=== PATIENT | female | born 1985 | race Two or more races ===

== ENCOUNTER 2020-08-28 12:58 | Emergency (ER) | payer OTHER, MEDICAID ==
[~2020-08-28] VITALS: Ht 162.6 cm; Wt 74.8 kg
[~2020-08-28 12:58] MED LIST: ACETAMINOPHEN-H1 TA1 PO; AUG500 PO; COL100 PO; DEPAKOTE500 MG; DULCOLAX5 M1; INVEGA SUSTENN117 MG; LEVEMIR100 U/M1; NOVOLOG100 U/ML; OMEPRAZOLE40 M1; RELION HUMUL100 U/M2; RISPERDAL1 M1; ZESTRIL5 MG
[2020-08-28 13:20] VITALS: BP 135/88; Ht 162.6 cm; Wt 74.8 kg
== END 2020-08-28 15:43 | disposition home or self-care (01) ==
LOC: ED 12:58
DX: R10.11 Right upper quadrant pain (principal); I10 Essential (primary) hypertension; E11.9 Type 2 diabetes mellitus without complications; Z90.49 Acquired absence of other specified parts of digestive tract; Z87.19 Personal history of other diseases of the digestive system; Z91.012 Allergy to eggs

== ENCOUNTER 2020-10-08 20:01 | Inpatient (IN) | payer OTHER, MEDICAID ==
[~2020-10-08] VITALS: Ht 167.6 cm; Wt 74.8 kg
[2020-10-08 20:12] VITALS: Ht 167.6 cm; Wt 74.8 kg
[2020-10-08 21:06] LABS: PLATELET COUNT 446 x10^3mcL (179-408); RED CELL DISTRIBUTION WIDTH 17.6 % (12.3-17.7)
[2020-10-08 21:12] LABS: ALBUMIN 3.5 g/dL (3.4-5.0); ALKALINE PHOSPHATASE 191 U/L (46-116); ALT/SGPT 113 U/L (14-59); AST/SGOT 97 U/L (15-37); BILIRUBIN TOTAL 1.8 mg/dL (0.20-1.00); CALCIUM 9.3 mg/dL (8.5-10.1); CARBON DIOXIDE 23.6 mmol/L (21-32); CHLORIDE SERUM 99 mmol/L (98-107); CREATININE SERUM 1.1 mg/dL (0.6-1.0); GFR1 > 60 mL/min; GLUCOSE SERUM 292 mg/dL (74-106); LIPASE 134 IU/L (73-393); POTASSIUM SERUM 4.3 mmol/L (3.5-5.1); SODIUM SERUM 135 mmol/L (136-145); TOTAL PROTEIN, SERUM 8.2 g/dL (6.4-8.2)
[2020-10-08 21:37] LABS: BAND NEUTROPHIL 25 % (0-10); BASOPHIL 0 % (0-2); MONOCYTE 8 % (0-7); SEGMENTED NEUTROPHILS 65 % (37-75)
[2020-10-08 21:39] LABS: rbc morphology (normal/abnorm) ABNORMAL (NORMAL); target cell (codocyte) 1+
[2020-10-08 21:40] LABS: PLATELET MORPHOLOGY PLATELETS INCREASED
[2020-10-09 02:44] LABS: microscopic required? NO
[2020-10-09 03:00] LABS: urine erythrocyte NEGATIVE (NEGATIVE)
[2020-10-09 03:08] LABS: AMPHETAMINE QUAL UR NONE DETECTED (See below)
[2020-10-09 06:00] LABS: MAGNESIUM 1.3 mg/dL (1.8-2.4); PHOSPHOROUS 1.2 mg/dL (2.5-4.9); T3 TOTAL 0.49 ng/mL
[2020-10-09 06:08] LABS: CHOLESTEROL/HDL RATIO 1.8
[2020-10-09 06:53] LABS: FREE T4 0.9 ng/dL (0.76-1.46); FREE THYROXINE INDEX 2.2 ug/dL (1.4-4.5); T4(THYROXINE) 6.2 ug/dL (4.7-13.3)
[2020-10-09 08:53] LABS: BASOPHIL % 0.2 % (0.2-1.3); PLATELET COUNT 257 x10^3mcL (179-408)
[2020-10-09 08:53] LABS: BILIRUBIN TOTAL 3.26 mg/dL (0.20-1.00); CALCIUM 7.7 mg/dL (8.5-10.1); CARBON DIOXIDE 14.3 mmol/L (21-32); CREATININE SERUM 1.7 mg/dL (0.6-1.0); TOTAL PROTEIN, SERUM 6.8 g/dL (6.4-8.2)
[2020-10-09 09:34] LABS: RED CELL DISTRIBUTION WIDTH 17.4 % (12.3-17.7)
[2020-10-09 09:47] LABS: rbc morphology (normal/abnorm) NORMAL (NORMAL)
[2020-10-09 10:01] LABS: ALBUMIN 2.6 g/dL (3.4-5.0)
[2020-10-09 17:04] LABS: C REACTIVE PROTEIN 12.8 mg/dL (<=0.9)
[2020-10-10 05:20] LABS: BASOPHIL % 0.3 % (0.2-1.3); PLATELET COUNT 181 x10^3mcL (179-408)
[2020-10-10 05:24] LABS: RED CELL DISTRIBUTION WIDTH 17.6 % (12.3-17.7)
[2020-10-10 05:29] LABS: rbc morphology (normal/abnorm) NORMAL (NORMAL)
[2020-10-10 05:31] LABS: ALKALINE PHOSPHATASE 149 U/L (46-116); ALT/SGPT 92 U/L (14-59); AST/SGOT 60 U/L (15-37); BILIRUBIN TOTAL 3.33 mg/dL (0.20-1.00); CARBON DIOXIDE 17.2 mmol/L (21-32); CHLORIDE SERUM 107 mmol/L (98-107); CREATININE SERUM 1.1 mg/dL (0.6-1.0); GFR1 > 60 mL/min; GLUCOSE SERUM 262 mg/dL (74-106); POTASSIUM SERUM 4.1 mmol/L (3.5-5.1); SODIUM SERUM 136 mmol/L (136-145)
[2020-10-10 05:39] LABS: ALBUMIN 2.2 g/dL (3.4-5.0); TOTAL PROTEIN, SERUM 6.1 g/dL (6.4-8.2)
[2020-10-10 15:24] LABS: RED BLOOD CELLS 3.29 M/mm3 (4.10-5.10)
[2020-10-10 15:48] LABS: IRON 10 ug/dL (50-170); TOTAL IRON BINDING CAPACITY 266 ug/dL (250-450)
[2020-10-11 08:55] LABS: PLATELET COUNT 201 x10^3mcL (179-408)
[2020-10-11 09:16] LABS: ALKALINE PHOSPHATASE 164 U/L (46-116); ALT/SGPT 76 U/L (14-59); AST/SGOT 32 U/L (15-37); BILIRUBIN TOTAL 2.24 mg/dL (0.20-1.00); CALCIUM 7.4 mg/dL (8.5-10.1); CARBON DIOXIDE 18.7 mmol/L (21-32); CHLORIDE SERUM 108 mmol/L (98-107); CREATININE SERUM 0.9 mg/dL (0.6-1.0); GFR1 > 60 mL/min; GLUCOSE SERUM 262 mg/dL (74-106); POTASSIUM SERUM 4.2 mmol/L (3.5-5.1); SODIUM SERUM 138 mmol/L (136-145); TOTAL PROTEIN, SERUM 6.2 g/dL (6.4-8.2)
[2020-10-11 09:28] LABS: RED CELL DISTRIBUTION WIDTH 17.6 % (12.3-17.7)
[2020-10-11 15:01] LABS: MONOCYTE 6 % (0-7); PLATELET MORPHOLOGY PLATELETS NORMAL; SEGMENTED NEUTROPHILS 86 % (37-75); rbc morphology (normal/abnorm) NORMAL (NORMAL)
[2020-10-11 22:52] VITALS: BP 110/68
[2020-10-11 23:19] VITALS: BP 109/70
[2020-10-12] VITALS (10 sets, daily range): BP systolic 89–122; BP diastolic 42–74
[2020-10-13 05:56] VITALS: BP 114/65
[2020-10-13 07:35] LABS: CALCIUM 7.3 mg/dL (8.5-10.1); CARBON DIOXIDE 24.5 mmol/L (21-32); CHLORIDE SERUM 106 mmol/L (98-107); CREATININE SERUM 0.7 mg/dL (0.6-1.0); GFR1 > 60 mL/min; GLUCOSE SERUM 155 mg/dL (74-106); POTASSIUM SERUM 3.2 mmol/L (3.5-5.1); SODIUM SERUM 138 mmol/L (136-145)
[2020-10-13 07:46] LABS: PLATELET COUNT 175 x10^3mcL (179-408)
[2020-10-13 08:17] LABS: RED CELL DISTRIBUTION WIDTH 17.9 % (12.3-17.7)
[2020-10-13 09:19] VITALS: BP 111/63
[2020-10-13 12:55] VITALS: BP 107/67
[2020-10-13 14:35] LABS: BAND NEUTROPHIL 1 % (0-10); MONOCYTE 12 % (0-7); SEGMENTED NEUTROPHILS 68 % (37-75); rbc morphology (normal/abnorm) NORMAL (NORMAL)
[2020-10-13 16:01] VITALS: BP 109/62
[2020-10-13 21:51] VITALS: BP 118/65
[2020-10-13 22:15] LABS: PLATELET COUNT 193 x10^3mcL (179-408)
[2020-10-13 22:21] LABS: RED CELL DISTRIBUTION WIDTH 17.7 % (12.3-17.7)
[2020-10-13 22:41] LABS: BAND NEUTROPHIL 6 % (0-10); MONOCYTE 17 % (0-7); SEGMENTED NEUTROPHILS 59 % (37-75)
[2020-10-13 22:42] LABS: rbc morphology (normal/abnorm) ABNORMAL (NORMAL)
[2020-10-14 06:02] VITALS: BP 113/64
[2020-10-14 07:38] VITALS: BP 112/68
[2020-10-14 08:44] LABS: BASOPHIL % 0.3 % (0.2-1.3); PLATELET COUNT 169 x10^3mcL (179-408)
[2020-10-14 09:16] LABS: RED CELL DISTRIBUTION WIDTH 18.5 % (12.3-17.7)
[2020-10-14 09:19] LABS: rbc morphology (normal/abnorm) NORMAL (NORMAL)
[2020-10-14 10:37] LABS: CALCIUM 7.7 mg/dL (8.5-10.1); CARBON DIOXIDE 22.7 mmol/L (21-32); CHLORIDE SERUM 106 mmol/L (98-107); CREATININE SERUM 0.6 mg/dL (0.6-1.0); GFR1 > 60 mL/min; GLUCOSE SERUM 119 mg/dL (74-106); SODIUM SERUM 139 mmol/L (136-145)
[2020-10-14 12:24] VITALS: BP 120/70
[2020-10-14 16:09] VITALS: BP 110/63
[2020-10-14 20:15] VITALS: BP 111/69
[2020-10-15 01:57] LABS: BILIRUBIN DIRECT 0.53 mg/dL (0.0-0.2); BILIRUBIN TOTAL 0.9 mg/dL (0.20-1.00)
[2020-10-15 01:59] LABS: ALBUMIN 1.7 g/dL (3.4-5.0); TOTAL PROTEIN, SERUM 5.5 g/dL (6.4-8.2)
[2020-10-15 05:25] VITALS: BP 118/74
[2020-10-15 07:41] LABS: BASOPHIL % 0.6 % (0.2-1.3); PLATELET COUNT 253 x10^3mcL (179-408)
[2020-10-15 08:00] LABS: CALCIUM 7.8 mg/dL (8.5-10.1); CARBON DIOXIDE 24.8 mmol/L (21-32); CHLORIDE SERUM 108 mmol/L (98-107); CREATININE SERUM 0.7 mg/dL (0.6-1.0); GFR1 > 60 mL/min; GLUCOSE SERUM 125 mg/dL (74-106); MAGNESIUM 1.9 mg/dL (1.8-2.4); POTASSIUM SERUM 3.1 mmol/L (3.5-5.1); SODIUM SERUM 141 mmol/L (136-145)
[2020-10-15 08:33] VITALS: BP 143/70
[2020-10-15 10:44] LABS: RED CELL DISTRIBUTION WIDTH 18.1 % (12.3-17.7)
[2020-10-15 12:03] VITALS: BP 131/73
[2020-10-15 16:52] VITALS: BP 133/77
[2020-10-15 21:37] VITALS: BP 140/69
[2020-10-15 22:45] LABS: rbc morphology (normal/abnorm) NORMAL (NORMAL)
[2020-10-16 04:51] VITALS: BP 136/77
[2020-10-16 06:47] LABS: CALCIUM 7.8 mg/dL (8.5-10.1); CARBON DIOXIDE 28.1 mmol/L (21-32); CHLORIDE SERUM 106 mmol/L (98-107); CREATININE SERUM 0.7 mg/dL (0.6-1.0); GFR1 > 60 mL/min; GLUCOSE SERUM 129 mg/dL (74-106); POTASSIUM SERUM 3.6 mmol/L (3.5-5.1); SODIUM SERUM 142 mmol/L (136-145)
[2020-10-16 06:52] LABS: PLATELET COUNT 368 x10^3mcL (179-408)
[2020-10-16 07:49] LABS: RED CELL DISTRIBUTION WIDTH 19.2 % (12.3-17.7)
[2020-10-16 08:54] VITALS: BP 135/75
[2020-10-16 08:58] LABS: BAND NEUTROPHIL 2 % (0-10); MONOCYTE 16 % (0-7); SEGMENTED NEUTROPHILS 55 % (37-75); rbc morphology (normal/abnorm) NORMAL (NORMAL)
[2020-10-16 11:56] VITALS: BP 128/80
[2020-10-16 16:33] VITALS: BP 134/76
[2020-10-16 21:05] VITALS: BP 114/59
[2020-10-16 21:48] LABS: BILIRUBIN DIRECT 0.41 mg/dL (0.0-0.2); BILIRUBIN TOTAL 0.6 mg/dL (0.20-1.00)
[2020-10-16 21:55] LABS: TOTAL PROTEIN, SERUM 5.9 g/dL (6.4-8.2)
[2020-10-17 05:48] VITALS: BP 112/75
[2020-10-17 08:01] LABS: BASOPHIL % 0.8 % (0.2-1.3); PLATELET COUNT 266 x10^3mcL (179-408)
[2020-10-17 08:39] VITALS: BP 136/72
[2020-10-17 08:40] LABS: CHLORIDE SERUM 105 mmol/L (98-107); CREATININE SERUM 0.6 mg/dL (0.6-1.0); GFR1 > 60 mL/min; GLUCOSE SERUM 110 mg/dL (74-106); POTASSIUM SERUM 3.3 mmol/L (3.5-5.1); SODIUM SERUM 140 mmol/L (136-145)
[2020-10-17 09:47] LABS: RED CELL DISTRIBUTION WIDTH 19.3 % (12.3-17.7)
[2020-10-17 10:29] LABS: rbc morphology (normal/abnorm) NORMAL (NORMAL)
[2020-10-17] MEDS ORDERED: LEV500 PO (11:24)
[2020-10-17] MEDS ORDERED: COL100 PO (11:26)
[2020-10-17] MEDS ORDERED: FLA250 PO (11:26)
[2020-10-17] MEDS ORDERED: ULT50 PO (11:26)
[2020-10-17] MEDS ORDERED: PAN PO (11:27)
[2020-10-17 12:10] VITALS: BP 135/75
[2020-10-17 12:14] VITALS: BP 65/38
[2020-10-17 16:18] VITALS: BP 93/56
[2020-10-17 16:19] VITALS: BP 130/74
== END 2020-10-17 17:41 | disposition home or self-care (01) | DRG 919 ==
LOC: ED 20:01 → DU 10-09 00:27 → IC 10-09 00:27 → DU 10-11 22:29
PROVIDERS: Internal Medicine; Internal Medicine Gastroenterology; ADMIT Family Medicine; ATTEND Family Medicine
PROC: 0F778DZ Dilation of Common Hepatic Duct with Intraluminal Device, Via Natural or Artificial Opening Endoscopic (ICD-10-PCS; principal; 2020-10-10 10:00)
PROC: BF131ZZ Fluoroscopy of Gallbladder and Bile Ducts using Low Osmolar Contrast (ICD-10-PCS; 2020-10-10 10:00)
PROC: 0FC78ZZ Extirpation of Matter from Common Hepatic Duct, Via Natural or Artificial Opening Endoscopic (ICD-10-PCS; 2020-10-10 10:00)
DX: T85.520A Displacement of bile duct prosthesis, initial encounter (principal); R65.21 Severe sepsis with septic shock; J18.9 Pneumonia, unspecified organism; A41.50 Gram-negative sepsis, unspecified; E87.1 Hypo-osmolality and hyponatremia; Z20.828 Contact with and (suspected) exposure to other viral communicable diseases; I10 Essential (primary) hypertension; F20.9 Schizophrenia, unspecified; F31.9 Bipolar disorder, unspecified; E11.65 Type 2 diabetes mellitus with hyperglycemia; R74.01 Elevation of levels of liver transaminase levels; K76.0 Fatty (change of) liver, not elsewhere classified; D47.3 Essential (hemorrhagic) thrombocythemia; E83.42 Hypomagnesemia; D64.9 Anemia, unspecified; E86.0 Dehydration; B96.1 Klebsiella pneumoniae [K. pneumoniae] as the cause of diseases classified elsewhere; Y83.8 Other surgical procedures as the cause of abnormal reaction of the patient, or of later complication, without mention of misadventure at the time of the procedure; Z79.4 Long term (current) use of insulin; Z83.3 Family history of diabetes mellitus; Z90.49 Acquired absence of other specified parts of digestive tract; Z81.8 Family history of other mental and behavioral disorders; Z82.49 Family history of ischemic heart disease and other diseases of the circulatory system; Y92.89 Other specified places as the place of occurrence of the external cause
CPT/HCPCS: 43260; 74181; 82962; 83880; 84439; 85378; 97116-GP; C1769; C9113; G0378; J0330; J0696; J1610; J1815; J1885; J1940; J2270; J2405; J2543; J2710; J2916; J2930; J3010; J3370; J3475; J3480; J3490; J7030; J7040; J7050; J7120; Q9966; Q9967; U0003